=== PATIENT | male | born 1965 ===

== ENCOUNTER 2023-09-08 17:21 | Inpatient (IN) | payer OTHER ==
[2023-09-08 20:50] LABS: URINE APPEARANCE TURBID; URINE BILIRUBIN NEGATIVE (NEGATIVE); URINE GLUCOSE (UA) NEGATIVE (NEGATIVE)
[2023-09-08 20:51] LABS: URINE KETONE NEGATIVE (NEGATIVE); URINE PROTEIN 300 (NEGATIVE)
[2023-09-08 20:52] LABS: URINE LEUK ESTERASE NEGATIVE (NEGATIVE); URINE NITRITE NEGATIVE (NEGATIVE)
[2023-09-08 20:53] LABS: URINE COLOR RED
[2023-09-08 21:00] LABS: BASO % 0.6 % (0-2.0); EOS % 9.1 % (0-4.5); HEMOGLOBIN 10.7 GM/dL (11.7-16.9); LYMPH % 25.3 % (8-40); MCH 28.2 pg (25.7-33.7); MCHC 33.5 g/dl (32.0-35.9); MEAN CELL VOLUME 84.3 fl (80-96); MEAN PLT VOLUME 6.6 fl (7.5-11.1); MONO % 7.1 % (3.8-10.2); NEUT % 57.9 % (42.8-82.8); PLATELET COUNT 301 10^3/uL (134-434); RDW 17.7 % (11.9-15.9); WHITE BLOOD COUNT 5.9 K/mm3 (4.0-10.0)
[2023-09-08 21:29] LABS: POTASSIUM 4.1 mmol/L (3.5-5.1)
[2023-09-08 21:32] LABS: ALBUMIN 3.2 g/dl (3.4-5.0); BLOOD UREA NITROGEN 27.7 mg/dL (7-18); MAGNESIUM 2.6 mg/dL (1.8-2.4)
[2023-09-08 21:35] LABS: CREATININE 0.8 mg/dL (0.55-1.3); PHOSPHOROUS 2.5 mg/dL (2.5-4.9)
[2023-09-08 21:37] LABS: TOT PROT 7.4 g/dl (6.4-8.2)
[2023-09-08 21:43] LABS: BILIRUBIN,TOTAL 0.2 mg/dL (0.2-1)
[2023-09-09] MEDS: SODIUM CHLORIDE 1,000 ML IV SCH (03:22)
[2023-09-09] MEDS: levETIRAcetam 500 MG TABLET (FP) PO SCH (09:15)
[2023-09-09] MEDS: POLYETHYLENE GLYCOL (HEALTHYLAX) 3350 17 GM PACKET PO SCH (09:15)
[2023-09-09] MEDS: amLODIPine BESYLATE 10 MG TABLET (FP) PO SCH (09:15)
[2023-09-09] MEDS ORDERED: COLLAGENASE CLOSTRIDIUM HIST. 30 GRAMS TUBE TP SCH (10:00)
[2023-09-09] MEDS: CEFTRIAXONE 1 GM in DEXTROSE 5%-WATER - 50 ML IVPB SCH (11:53)
[2023-09-09] MEDS: THIAMINE 100 MG TABLET PO SCH (12:56)
[2023-09-09] MEDS: TAMSULOSIN HCL 0.4 MG CAP PO SCH (12:56)
[2023-09-09] MEDS: ESCITALOPRAM OXALATE 10 MG TABLET PO SCH (12:56)
[2023-09-09] MEDS: MEMANTINE HCL 10 MG TABLET (FP) PO SCH (12:56)
[2023-09-09] MEDS: NYSTATIN POWDER 100,000 UNITS/GM - 15 GM TOPICAL POWDER TP SCH (15:45)
[2023-09-09] MEDS: BETHANECHOL CHLORIDE 25 MG TABLET PO SCH (15:45)
[2023-09-09] MEDS: MIRTAZAPINE 15 MG TABLET (FP) PO SCH (22:07)
[2023-09-09] MEDS: ATORVASTATIN CA 40 MG TABLET (FP) PO SCH (22:08)
[2023-09-09] MEDS: SENNOSIDES 8.6MG TABLET (FP) PO SCH (22:08)
[2023-09-10 09:33] LABS: HEMATOCRIT 31.4 % (35.4-49); HEMOGLOBIN 10.5 GM/dL (11.7-16.9); MCH 28.4 pg (25.7-33.7); MCHC 33.4 g/dl (32.0-35.9); MEAN CELL VOLUME 85.1 fl (80-96); MEAN PLT VOLUME 7.4 fl (7.5-11.1); PLATELET COUNT 271 10^3/uL (134-434); RBC 3.69 M/mm3 (4.00-5.60); RDW 17.6 % (11.9-15.9); WHITE BLOOD COUNT 5.2 K/mm3 (4.0-10.0)
[2023-09-10 09:56] LABS: POTASSIUM 3.7 mmol/L (3.5-5.1)
[2023-09-10 10:51] LABS: ALBUMIN 3.1 g/dl (3.4-5.0); BLOOD UREA NITROGEN 15.8 mg/dL (7-18); CALCIUM 9.2 mg/dL (8.5-10.1); MAGNESIUM 2.3 mg/dL (1.8-2.4)
[2023-09-10 10:54] LABS: BILIRUBIN,TOTAL 0.7 mg/dL (0.2-1); CREATININE 0.7 mg/dL (0.55-1.3); PHOSPHOROUS 3.3 mg/dL (2.5-4.9)
[2023-09-10 14:33] VITALS: BMI 23.6
[2023-09-11 07:54] LABS: HEMATOCRIT 29.2 % (35.4-49); HEMOGLOBIN 9.5 GM/dL (11.7-16.9); MCH 27.8 pg (25.7-33.7); MCHC 32.7 g/dl (32.0-35.9); MEAN CELL VOLUME 85.3 fl (80-96); MEAN PLT VOLUME 7.1 fl (7.5-11.1); PLATELET COUNT 280 10^3/uL (134-434); RBC 3.42 M/mm3 (4.00-5.60); RDW 17.3 % (11.9-15.9)
[2023-09-11 08:31] LABS: POTASSIUM 3.9 mmol/L (3.5-5.1)
[2023-09-11 08:36] LABS: CALCIUM 9.1 mg/dL (8.5-10.1)
[2023-09-11 08:37] LABS: BLOOD UREA NITROGEN 15.1 mg/dL (7-18)
[2023-09-11 08:40] LABS: CREATININE 0.7 mg/dL (0.55-1.3)
[2023-09-11] MEDS ORDERED: PROPOFOL 40 ML ONE (14:06)
[2023-09-11] MEDS ORDERED: FENTANYL CITRATE/PF 50 MCG/ML VIAL ONE ×2 (14:06→15:05)
[2023-09-11] MEDS ORDERED: ROCURONIUM BROMIDE 50 MG/5 ML SYRINGE ONE (14:06)
[2023-09-11] MEDS ORDERED: ETOMIDATE 20 MG/10 ML VIAL IVPUSH ONE (14:07)
[2023-09-11] MEDS: GENTAMICIN SO4 80 MG/2 ML VIAL IVPB ONE (14:10)
[2023-09-11] MEDS ORDERED: ONDANSETRON 4 MG/2 ML VIAL IVPUSH PRN (14:39)
[2023-09-11] MEDS ORDERED: SODIUM CHLORIDE 1,000 ML IV SCH (14:45)
[2023-09-11] MEDS: LABETALOL HCL 5 MG/1 ML (100MG/20 ML VIAL) IVPUSH ONE (15:33)
[2023-09-11] MEDS ORDERED: LABETALOL HCL 5 MG/1 ML (100MG/20 ML VIAL) ONE (15:33)
[2023-09-11 19:07] VITALS: RESP 18
[2023-09-11] MEDS: MIRTAZAPINE 15 MG TABLET (FP) PO SCH (21:23)
[2023-09-11] MEDS: BETHANECHOL CHLORIDE 25 MG TABLET PO SCH (21:23)
[2023-09-11] MEDS: ATORVASTATIN CA 40 MG TABLET (FP) PO SCH (21:24)
[2023-09-11] MEDS: SENNOSIDES 8.6MG TABLET (FP) PO SCH (21:24)
[2023-09-11] MEDS: levETIRAcetam 500 MG TABLET (FP) PO SCH (21:24)
[2023-09-11] MEDS: NYSTATIN POWDER 100,000 UNITS/GM - 15 GM TOPICAL POWDER TP SCH (21:25)
[2023-09-12] MEDS: TAMSULOSIN HCL 0.4 MG CAP PO SCH (09:17)
[2023-09-12] MEDS: amLODIPine BESYLATE 10 MG TABLET (FP) PO SCH (09:17)
[2023-09-12] MEDS: ESCITALOPRAM OXALATE 10 MG TABLET PO SCH (09:17)
[2023-09-12] MEDS: POLYETHYLENE GLYCOL (HEALTHYLAX) 3350 17 GM PACKET PO SCH (09:17)
[2023-09-12] MEDS: MEMANTINE HCL 10 MG TABLET (FP) PO SCH (09:18)
[2023-09-12] MEDS: THIAMINE 100 MG TABLET PO SCH (09:18)
[2023-09-12] MEDS ORDERED: COLLAGENASE CLOSTRIDIUM HIST. 30 GRAMS TUBE TP SCH (10:00)
[2023-09-12] MEDS: ASPIRIN 81 MG CHEWABLE TABLETS PO SCH (15:15)
[2023-09-12] MEDS: FERROUS SO4 300 MG/5 ML ORAL SOLN UNIT DOSE CUPS PO SCH (15:15)
[2023-09-12] MEDS: MULTIVITAMINS (DAILY MVI) TABLET (FP) PO SCH (15:16)
[2023-09-12] MEDS: ASCORBIC ACID 500 MG TABLET (FP) PO SCH (21:40)
[2023-09-14 14:45] VITALS: BP 149/85; PULSE 96; TEMP 99
[2023-09-14] MEDS ORDERED: ACETAMINOPHEN 325 MG TABLET (FP) PO PRN (15:39)
[2023-09-14] MEDS ORDERED: MAGNESIUM GLYCINATE 100 MG PO SCH (22:00)
[2023-09-15] MEDS ORDERED: MEMANTINE HCL 10 MG TABLET (FP) PO SCH (10:00)
== END 2023-09-14 17:57 | DRG 813 ==
LOC: JER 17:21 → JERBED 23:31 → J6S 09-09 02:57
PROVIDERS: ADMIT Internal Medicine; ATTEND Internal Medicine
PROC: 0TJB8ZZ Inspection of Bladder, Via Natural or Artificial Opening Endoscopic (ICD-10-PCS; principal; 2023-09-11 17:00)
PROC: 3E1K88Z Irrigation of Genitourinary Tract using Irrigating Substance, Via Natural or Artificial Opening Endoscopic (ICD-10-PCS; 2023-09-11 17:00)
DX: D68.32 Hemorrhagic disorder due to extrinsic circulating anticoagulants (principal); R53.2 Functional quadriplegia; I69.351 Hemiplegia and hemiparesis following cerebral infarction affecting right dominant side; I10 Essential (primary) hypertension; L89.152 Pressure ulcer of sacral region, stage 2; E78.5 Hyperlipidemia, unspecified; G89.29 Other chronic pain; R13.10 Dysphagia, unspecified; N31.9 Neuromuscular dysfunction of bladder, unspecified; R29.810 Facial weakness; D49.4 Neoplasm of unspecified behavior of bladder; R73.03 Prediabetes; R29.6 Repeated falls; M62.461 Contracture of muscle, right lower leg; M62.462 Contracture of muscle, left lower leg; Z74.01 Bed confinement status
CPT/HCPCS: 36415; 76856-TC; 80048; 80053; 81003; 81015; 83735; 84100; 85025; 85027; 86850; 86900; 86901; 87086; 87635; 94760; 99285-25